=== PATIENT | male | born 1935 | race Caucasian/White ===

== ENCOUNTER 2022-02-17 23:52 | Emergency (ER) | payer MEDICARE ==
[2022-02-18] MEDS ORDERED: Bisacodyl 10 MG SUPP ONE (00:45)
== END 2022-02-18 01:35 | disposition home or self-care (01) ==
LOC: BURERS 23:52
DX: K56.41 Fecal impaction (principal); E11.9 Type 2 diabetes mellitus without complications; I25.10 Atherosclerotic heart disease of native coronary artery without angina pectoris; K21.9 Gastro-esophageal reflux disease without esophagitis
CPT/HCPCS: 99283

== ENCOUNTER 2022-06-22 19:32 | Emergency (ER) | payer MEDICARE ==
[2022-06-22 20:38] LABS: Bilirubin Negative (Negative); Blood, Urine Trace (Negative); Clarity Clear (Clear); Glucose, Urine (Dipstick) >=1000 mg/dL (Negative); Ketone, Urine Negative (Negative); Leukocyte Negative (Negative); Nitrite Negative (Negative); Protein, Urine (Dipstick) 100 mg/dL (Neg-Trace); Urobilinogen 0.2 mg/dL (Less than 2); pH, Urine 5.5 (5.0-9.0)
[2022-06-22 20:47] LABS: Hemoglobin 14.7 g/dL (14.0-18.0); Mean Corpuscular HGB CONC 33.7 g/dL (32.0-36.0); Mean Corpuscular Hemoglobin 31.7 pg (27.0-31.0); Mean Corpuscular Volume 93.8 fL (78.0-98.0); Mean Platelet Volume 10.3 fL (7.4-10.4); Platelet Count 126 thou/uL (130-400); RBC Distribution Width 11.2 % (11.5-14.5); Red Blood Cell (RBC) Count 4.63 mill/uL (4.70-6.10); White Blood Cell (WBC) Count 4.9 thou/uL (4.8-10.8)
[2022-06-22 20:48] LABS: ALT (SGPT) 33 U/L (8-55); AST (SGOT) 23 U/L (5-34); Albumin 3.9 g/dL (3.4-4.8); Alkaline Phosphatase 88 U/L (40-110); Anion Gap 12 mmol/L (10-20); BUN (Urea Nitrogen) 22 mg/dL (8.4-25.7); Bilirubin, Total 0.7 mg/dL (0.2-1.2); Calc. Creatinine Clearance 0 mL/min (70-130); Calcium 9.2 mg/dL (7.8-10.44); Carbon Dioxide 29 mmol/L (23-31); Chloride 98 mmol/L (98-107); Estimated GFR 46; Globulin 3.2 g/dL (2.4-3.5); Glucose 354 mg/dL (83-110); Potassium 4.3 mmol/L (3.5-5.1); Protein, Total 7.1 g/dL (5.8-8.1); Sodium 135 mmol/L (136-145)
[2022-06-22 20:50] LABS: Bacteria/HPF None Seen HPF (None Seen); Base Excess-Venous 2.1 mmol/L (-2.0 to 3.0); Bicarbonate (HCO3v) 29.7 mmol/L (22.0-28.0); CO2 Tension (PvCO2) 57.1 mmHg (42.0-51.0); Calcium, Ionized 1.19 mmol/L (1.15-1.33); Chloride 98 mmol/L (98-107); Hemoglobin - Calc 14.9 g/dL (14.0-18.0); Potassium 4.2 mmol/L (3.5-5.1); RBC/HPF 0-3 HPF (0-3); Sodium 136 mmol/L (138-145); Squamous Epithelial 0-3 HPF (0-3); T. Carbon Dioxide 31.5 mmol/L (22.0-28.0); WBC/HPF None Seen HPF (0-3); vO2 Saturation-calc 58.1 % (60.0-85.0)
[2022-06-22 21:16] LABS: Eosinophils 5 % (0-10); Lymphocytes 18 % (21-51); MDiff Complete? YES; Monocytes 16 % (0-10); Neutrophil 61 % (42-75); RBC Morphology Normal
== END 2022-06-22 22:34 | disposition home or self-care (01) ==
LOC: BURERS 19:32
DX: E11.65 Type 2 diabetes mellitus with hyperglycemia (principal); K21.9 Gastro-esophageal reflux disease without esophagitis
CPT/HCPCS: 36416; 80053; 81003; 81015; 82330; 82803; 84484; 85014; 85025; 94760

== ENCOUNTER 2022-08-14 16:07 | Emergency (ER) | payer MEDICARE | END 2022-08-14 18:41 | disposition home or self-care (01) | LOC: BURERS 16:07 | DX: K56.41 Fecal impaction (principal); E11.9 Type 2 diabetes mellitus without complications | CPT/HCPCS: 74176 ==

== ENCOUNTER 2023-08-20 12:03 | Outpatient (CLI) | payer MEDICARE | END 2023-08-20 12:04 | disposition home or self-care (01) | LOC: BURRAD 12:03 | PROVIDERS: ATTEND Neurological Surgery | DX: M25.512 Pain in left shoulder (principal); Z96.612 Presence of left artificial shoulder joint ==